=== PATIENT | male | born 1985 | race Caucasian/White ===

== ENCOUNTER 2019-04-04 12:17 | Emergency (ER) | payer SELFPAY ==
[~2019-04-04] VITALS: Ht 175.3 cm; Wt 88.9 kg
--- NOTE | 2019-04-04 12:20 | NUR ---
JEFFERSON 62 FROM HOME C/O ANXIETY, NR=[id number], TO ER BED 7, HOOKED TO MONITOR, PROVIDED W WARM BLANKET, AWAITING MD SMITH.
--- NOTE | 2019-04-04 12:28 | NUR ---
PA FOSTER AT BEDSIDE
[2019-04-04] MEDS ORDERED: LORAZEPAM 1 MG TABLET ONE (12:36)
[2019-04-04] MEDS ORDERED: LORAZEPAM 1 MG TABLET PO ONE ×2 (13:00)
[2019-04-04] MEDS ORDERED: LORAZEPAM INJ 2 MG/ML VIAL ONE (13:00)
[2019-04-04] MEDS ORDERED: LORAZEPAM INJ 2 MG/ML VIAL IV ONE (13:00)
[2019-04-04] MEDS ORDERED: IV NS 0.9% 1,000 ML BAG IV ONE (13:00)
--- NOTE | 2019-04-04 14:22 | NUR ---
PT IN BED ASLEEP, HOOKED TO MONITOR. KEPT COMFORTABLE AND SAFE.
--- NOTE | 2019-04-04 16:06 | NUR ---
PT AWAKE, HOOKED TO MONITOR. NAD NOTED. MADE PA HUMAIRA AWARE.
--- NOTE | 2019-04-04 17:00 | NUR ---
PTOVIDED W SANDWICH AND WATER. TOLERATING PO WELL.
--- NOTE | 2019-04-04 19:27 | NUR ---
REPORT GIVEN TO JACLYN SOLANO FOR RENE
[2019-04-04 23:34] VITALS: BP 118/71
== END 2019-04-04 23:35 | disposition home or self-care (01) ==
LOC: ER 12:23
DX: F41.9 Anxiety disorder, unspecified (principal); F15.20 Other stimulant dependence, uncomplicated; F10.20 Alcohol dependence, uncomplicated; Y90.9 Presence of alcohol in blood, level not specified
CPT/HCPCS: 96374; 99284; J2060; J7030 ×2

== ENCOUNTER 2022-10-07 00:59 | Emergency (ER) | payer MEDICAID ==
[~2022-10-07] VITALS: Ht 175.3 cm; Wt 88.9 kg
[2022-10-07 01:36] VITALS: BP 138/90
--- NOTE | 2022-10-07 01:36 | NUR ---
[id number] FROM [place] C/O ANXIETY REQUESTING ATIVAN. +HEARS VOICES -SI/HI
[2022-10-07] MEDS ORDERED: LORAZEPAM 1 MG TABLET PO ONE (02:00)
[2022-10-07] MEDS ORDERED: LORAZEPAM 1 MG TABLET ONE (02:11)
--- NOTE | 2022-10-07 02:59 | NUR ---
Patient discharged to home in stable condition. Written and verbal after care instructions given. Patient verbalizes understanding of instruction. Pt ambulatory with a steady gait
== END 2022-10-07 02:59 | disposition home or self-care (01) ==
LOC: ER 01:02
DX: F19.10 Other psychoactive substance abuse, uncomplicated (principal); Z59.00 Homelessness unspecified

== ENCOUNTER 2023-08-08 14:27 | Emergency (ER) | payer MEDICAID ==
[~2023-08-08] VITALS: Ht 175.3 cm; Wt 99.8 kg
[2023-08-08 14:50] VITALS: BP 136/68; TEMP 98; O2SAT 98
[2023-08-08] MEDS ORDERED: ESCITALOPRAM OXALATE (10 MG) 10 MG TABLET PO ONE (17:30)
[2023-08-08] MEDS ORDERED: LORAZEPAM 1 MG TABLET PO ONE (17:30)
[2023-08-08] MEDS ORDERED: LORAZEPAM 1 MG TABLET ONE (17:40)
[2023-08-08] MEDS ORDERED: ESCITALOPRAM OXALATE (10 MG) 10 MG TABLET ONE (17:41)
[2023-08-08 18:11] LABS: BASOPHILS # (AUTO) 0.1 K/uL (0.0-0.2); BASOPHILS % (AUTO) 0.6 % (0.0-2.0); EOSINOPHILS # (AUTO) 0.1 K/uL (0.0-0.7); EOSINOPHILS % (AUTO) 1.1 % (0.0-6.0); HEMATOCRIT 39 % (39-51); HEMOGLOBIN 13.2 g/dL (13.5-17.5); LYMPHOCYTES % (AUTO) 11.2 % (20.0-44.0); MEAN CORPUSCULAR HEMOGLOBIN 31 PG (26.0-33.0); MEAN CORPUSCULAR HGB CONC 34 g/dl (31.0-36.0); MEAN CORPUSCULAR VOLUME 91 fL (80-96); MONOCYTES # (AUTO) 0.6 K/uL (0.1-1.30); MONOCYTES % (AUTO) 6.3 % (2.0-12.0); NEUTROPHILS # (AUTO) 7.2 K/uL (1.8-8.9); NEUTROPHILS % (AUTO) 80.8 % (43.0-81.0); PLATELET COUNT (AUTO) 328 K/uL (150-450); RED BLOOD CELL COUNT(AUTO) 4.27 MIL/uL (4.5-6.0); WHITE BLOOD COUNT (AUTO) 8.9 K/uL (4.3-11.0)
[2023-08-08 18:35] LABS: CALCIUM, SERUM 8.8 mg/dL (8.5-10.1); CARBON DIOXIDE 29 mmol/L (21-32); CHLORIDE 100 mmol/L (98-107); CREATININE 0.6 mg/dL (0.6-1.3); GLUCOSE 116 mg/dL (74-106); POTASSIUM 3.7 mmol/L (3.5-5.1); SODIUM SERUM 136 mmol/L (136-145); UREA NITROGEN, BLOOD 4 mg/dL (7-18)
[2023-08-08 18:46] LABS: ALANINE AMINOTRANSFERASE 97 U/L (12-78); ALBUMIN 3.4 g/dL (3.4-5.0); ALCOHOL, BLOOD < 3 mg/dL (0-10); ALKALINE PHOSPHATASE 98 U/L (46-116); ASPARTATE AMINOTRANSFERASE 140 U/L (15-37); BILIRUBIN,DIRECT 0.2 mg/dL (0.0-0.2); BILIRUBIN,TOTAL 0.5 mg/dL (0.2-1.0); TOTAL PROTEIN, SERUM 7.5 g/dL (6.4-8.2)
[2023-08-08 18:47] LABS: ACETAMINOPHEN <10 ug/ml (10-30); SALICYLATE < 2.3 mg/dL (2.8-20.0)
[2023-08-08 23:23] LABS: AMPHETAMINE, URINE NEGATIVE (NEGATIVE); BARBITURATE, URINE NEGATIVE (NEGATIVE); BENZODIAZEPINE, URINE NEGATIVE (NEGATIVE); CANNABINOID, URINE NEGATIVE (NEGATIVE); COCCAINE, URINE NEGATIVE (NEGATIVE); OPIATE, URINE NEGATIVE (NEGATIVE); PHENCYCLIDINE SCREEN,URINE NEGATIVE (NEGATIVE)
[2023-08-08 23:33] LABS: APPEARANCE,URINE CLEAR (CLEAR); BILIRUBIN,URINE NEGATIVE (NEGATIVE); BLOOD, URINE NEGATIVE Ery/uL (NEGATIVE); COLOR,URINE YELLOW (YELLOW); KETONES,URINE NEGATIVE (NEGATIVE); LEUKOCYTE ESTERASE ,URINE NEGATIVE (NEGATIVE); NITRITE, URINE NEGATIVE (NEGATIVE); PROTEIN,URINE NEGATIVE (NEGATIVE); UGLUCOSE NEGATIVE (NEGATIVE)
[2023-08-09 00:26] LABS: ADD URINE CULTURE NO; BACTERIA,URINE None seen /HPF (None Seen); RBC,URINE NONE SEEN /HPF (0-2); SQUAMOUS EPITHELIAL CELL,UR None Seen /HPF (None Seen); WBC,URINE NONE SEEN /HPF (0-3)
== END 2023-08-09 03:56 ==
LOC: ER 14:47
DX: F41.9 Anxiety disorder, unspecified (principal); R44.0 Auditory hallucinations; Z60.2 Problems related to living alone
CPT/HCPCS: 36415; 80048-TC; 80076-TC; 81001; 85025-TC; G0480